=== PATIENT | male | born 1980 | race Two or more races ===

== ENCOUNTER 2018-03-21 13:58 | Emergency (ER) | payer MEDICAID ==
[~2018-03-21] VITALS: Ht 175.3 cm; Wt 86.2 kg
[2018-03-21 13:58] VITALS: BP 113/70
[2018-03-21] MEDS ORDERED: LEVOFLOXACIN (500MG) 500 MG TABLET ONE (16:09)
[2018-03-21] MEDS ORDERED: LEVOFLOXACIN (500MG) 500 MG TABLET PO ONE (16:30)
== END 2018-03-21 16:14 | disposition home or self-care (01) ==
LOC: ER 14:04
DX: J18.9 Pneumonia, unspecified organism (principal); F17.200 Nicotine dependence, unspecified, uncomplicated
CPT/HCPCS: 71046; 99284; A4606; Z7610